=== PATIENT | female | born 1950 | race Caucasian/White ===

== ENCOUNTER 2016-07-13 04:44 | Emergency (ER) ==
[2016-07-13 04:56] VITALS: BP 155/88; TEMP 98.2; BMI 34.7
[2016-07-13] MEDS ORDERED: DILAUDID 1 MG/ML SYRINGE IM STA (05:28)
[2016-07-13 05:50] LABS: BASOPHILS # (AUTO) 0.1 K/uL (0-0.2); BASOPHILS % (AUTO) 0.5 % (0.0-3.0); EOSINOPHILS # (AUTO) 0.1 K/ul (0.0-0.7); EOSINOPHILS % (AUTO) 0.7 % (0.0-7.0); HEMATOCRIT 41.3 % (37.0-47.0); HEMOGLOBIN 13.9 g/dl (12.0-16.0); IMMATURE GRANULOCYTE % (AUTO) 0.5 % (0.0-5.0); LYMPHOCYTES # (AUTO) 3.6 K/uL (0.60-3.4); LYMPHOCYTES % (AUTO) 27.3 (10.0-50.0); MEAN CORPUSCULAR HEMOGLOBIN 29.5 pg (27.0-31.0); MEAN CORPUSCULAR HGB CONC 33.7 (31.8-35.4); MEAN CORPUSCULAR VOLUME 87.7 fl (81.0-99.0); MONOCYTES # (AUTO) 1.1 K/uL (0.4-2.0); MONOCYTES % (AUTO) 8.5 (0-10); NEUTROPHILS # (AUTO) 8.3 K/ul (2.0-6.9); NEUTROPHILS % (AUTO) 62.5; PLATELET COUNT 424 10^3/uL (140-440); RED BLOOD COUNT 4.71 10^6/ul (4.20-5.40); WHITE BLOOD COUNT 13.32 K/ul (4.6-10.2)
--- NOTE | 2016-07-13 05:53 | CT ---
EXAM: CT head without contrast 12/22. Sagittal and coronal reformatted images obtained HISTORY: Headache COMPARISON: 04/09/2014 FINDINGS: There is no evidence of intracranial hemorrhage. The midline is maintained. No hydroceph alous. Mild atrophy and small vessel ischemic change. No cerebellar tonsillar ectopia. Evaluation of the calvarium shows no fracture. The mastoid air cells are normally pneumatized. IMPRESSION: No acute intracranial abnormality.
--- NOTE | 2016-07-13 06:10 | ED.PDOC ---
General ED Provider: Dr. JEIMY GARCIA Chief Complaint: Earache Stated Complaint: patient states she was seen in the clinic one week ago for left ear pain ws given antibiotics steroids and pain medications but did not help. Time Seen by Physician: 05:00 Mode of Arrival: Walk-In Information Source: Patient Exam Limitations: No limitations Primary Care Provider: LLOYD CHO Nursing and Triage Documentation Reviewed and Agree: Yes EENT Complaint Exam - Ear Complaint/Exam Onset/Duration: 1 week Symptoms Are: Still present Timing: Constant Initial Severity: Moderate Current Severity: Severe Character: Reports: Sharp pain Aggravating: Reports: Tugging on ear, Movement Associated Signs and Symptoms: Reports: Headache (moravian area. ) Related History: Denies: Similar Episode, Seasonal allergies, Meds used, Drops used Ear Surgical History: None Vesicles to External Pinna: No Vesicles to Tragus: No TMJ Tenderness: None Mastoid Tenderness: None External Canal: Normal Material in Canal: Absent: Cerumen, Cerumen impaction Differential Diagnoses: Pharyngitis, URI, Serous Otitis Review of Systems - Review Of Systems Constitutional: Reports: No symptoms Eyes: Reports: No symptoms Ears, Nose, Mouth, Throat: Reports: Ear pain Respiratory: Reports: No symptoms Cardiac: Reports: No symptoms GI: Reports: No symptoms : Reports: No symptoms Musculoskeletal: Reports: No symptoms Skin: Reports: No symptoms Neurological: Reports: No symptoms Endocrine: Reports: No symptoms Hematologic/Lymphatic: Reports: No symptoms All Other Systems: Reviewed and Negative Past Medical History - Past Medical History Endocrine: Reports: Unknown Cardiovascular: Reports: Unknown Respiratory: Reports: Unknown Hematological: Reports: Unknown Gastrointestinal: Reports: Unknown Genitourinary: Reports: Unknown Neuro/Psych: Reports: Unknown Musculoskeletal: Reports: Unknown Cancer: Reports: Unknown Last Menstrual Period: 30 YEARS AGO - Surgical History General Surgical History: Reports: Unknown - Family History Family History: Reports: Unknown - Social History Smoking Status: Never smoker Hx Substance Use: No Alcohol Screening: None - Immunizations Tetanus Shot up to Date: (UNKNOWN) Physical Exam - Physical Exam Appearance: Ill-appearing, Obese Pain Distress: Severe Eyes: EVANGELIST, EOMI, Conjunctiva clear ENT: Ears normal, Nose normal, Oropharynx normal Neck: Supple Respiratory: Airway patent, Breath sounds clear, Breath sounds equal, Respirations nonlabored Cardiovascular: RRR Musculoskeletal: Normal strength Skin: Warm Neurological: Sensation intact, Motor intact, Alert, Oriented Psychiatric: Anxious Interpretation - Radiology Interpretation Radiology Interpretation By: Radiologist Radiology Results: Negative Exam Interpreted: CT Scan - EKG Interpretation Time of EKG #1: 06:02 Rate: Normal Rhythm: Sinus Ectopy: None [place]: NL ST Segment: Normal Interpretation: left atrial Enlargement, inverted T waves V1 and V2 Re-Evaluation - Re-Evaluation Time of Re-Evaluation: 06:45 Status: Improved Vital Signs Stable: Yes Pain Level: 0 Critical Care Note - Critical Care Note Total Time (mins): 0 Course - Course Hematology/Chemistry: 07/13/16 05:40 07/13/16 05:40 Orders, Labs, Meds: Lab Review 07/13/16 05:40 WBC 13.32 H RBC 4.71 Hgb 13.9 Hct 41.3 MCV 87.7 MCH 29.5 MCHC 33.7 RDW Coeff of Kwabena 12.9 Plt Count 424 Immature Gran % (Auto) 0.5 Neut % (Auto) 62.5 Lymph % (Auto) 27.3 [place] % (Auto) 8.5 Eos % (Auto) 0.7 Baso % (Auto) 0.5 Immature Gran # (Auto) 0.1 Neut # 8.3 H Lymph # 3.6 H [place] # 1.1 Eos # 0.1 Baso # 0.1 Orders Category Date Time Status EKG-(ED ONLY) Stat CARDIO 07/13/16 05:31 Ordered CBC W/ AUTO DIFF Stat LAB 07/13/16 05:40 Completed CBC W/ AUTO DIFF Stat LAB 07/13/16 05:58 Stop Req COMPREHENSIVE METABOLIC PANEL Stat LAB 07/13/16 05:40 Received ESR Stat LAB 07/13/16 05:40 Received TROPONIN I Stat LAB 07/13/16 05:40 Received Hydromorphone HCl [Dilaudid 1 mg/ml Syringe] MEDS 07/13/16 05:28 Discontinued 1 mg IM ONCE STA CT HEAD W/O CONTRAST Stat RADS 07/13/16 05:27 Completed Medications Discontinued Medications Generic Name Dose Route Start Last Admin Trade Name Freq PRN Reason Stop Dose Admin Hydromorphone HCl 1 mg 07/13/16 05:28 07/13/16 05:47 Dilaudid 1 Mg/Ml Syringe IM 07/13/16 05:29 1 mg ONCE STA Administration Vital Signs: Temp Pulse Resp BP Pulse Ox 07/13/16 04:45 98.2 F 84 20 155/88 H 98 Departure - Departure Time of Disposition: 06:27 Disposition: HOME SELF-CARE Discharge Problem: Ear pain, left Instructions: Earache (ED) Condition: Good Pt referred to PMD for follow-up: Yes Additional Instructions: Take medications as prescribed. Follow up with PCP in 3 days. Prescriptions: Ondansetron HCl [Zofran Tab] 8 mg PO Q8H PRN #15 tablet PRN Reason: Nausea / Vomiting Oxycodone-Acetaminophen 5-325 [Percocet 5-325] 1 tab PO Q4H #20 tablet Allergies/Adverse Reactions: Allergies acetaminophen [From Excedrin PM] Adverse Reaction (Verified 07/13/16 04:55) cortisone Adverse Reaction (Verified 07/13/16 04:55) diphenhydramine [From Excedrin PM] Adverse Reaction (Verified 07/13/16 04:55) Home Medications: Ambulatory Orders Alprazolam [Xanax] 0.25 mg PO BID 04/30/16 Donepezil HCl [Aricept] 10 mg PO DAILY 04/30/16 Escitalopram Oxalate [Lexapro] 10 mg PO DAILY 04/30/16 Lansoprazole [Prevacid] 30 mg PO DAILY 04/30/16 Losartan/Hydrochlorothiazide [Losartan-Hctz 100-25 mg Tab] 1 each PO DAILY 04/30 Phenytoin Cap [Dilantin] 100 mg PO QID 04/30/16 Verapamil HCl 120 mg PO DAILY 04/30/16 Amoxicillin/Potassium Clav [Augmentin 500-125 mg Tab] 1 tab PO Q8HR 07/13/16 Hydrocodone/Acetaminophen [Hydrocodon-Acetaminophen 5-325] 1 each PO BID PRN 12/22 Ondansetron HCl [Zofran Tab] 8 mg PO Q8H PRN #15 tablet 07/13/16 Oxycodone-Acetaminophen 5-325 [Percocet 5-325] 1 tab PO Q4H #20 tablet 07/13/16 Disposition Discussed With: Patient, Family
[2016-07-13 06:16] LABS: ALANINE AMINOTRANSFERASE 20 U/L (12-78); ALBUMIN 3.9 g/dL (3.4-5.0); ALBUMIN/GLOBULIN RATIO 0.98; ALKALINE PHOSPHATASE 126 U/L (53-141); ASPARTATE AMINO TRANSFERASE 19 U/L (15-37); BILIRUBIN,TOTAL 0.18 mg/dL (0.00-1.20); BLOOD UREA NITROGEN 9 mg/dL (7-18); BUN/CREATININE RATIO 11.11; CALCIUM 9.8 mg/dL (8.2-10.2); CARBON DIOXIDE 28 mmol/L (23-31); CHLORIDE 103 mmol/L (98-107); CREATININE 0.81 mg/dL (0.60-1.30); GLUCOSE 95 mg/dL (82-115); SODIUM 142 mmol/L (136-145); TOTAL PROTEIN 7.9 g/dL (5.8-8.1)
[2016-07-13 06:20] LABS: ERYTHROCYTE SEDIMENTATION RATE 16 mm/hr (0-20); ESR INTERNAL QC INTERNAL QC VALID
[2016-07-13] MEDS ORDERED: ZOFRAN ODT PO STA (06:46)
== END 2016-07-13 06:58 | disposition home or self-care (01) ==
LOC: ED 04:44
DX: H92.02 Otalgia, left ear (principal)
CPT/HCPCS: 36415; 80053; 84484; 85025; 85651; 93005; 93010; 96372; 99283

== ENCOUNTER 2016-11-02 07:00 | Emergency (ER) ==
[2016-11-02 07:04] VITALS: BP 167/95; TEMP 98.1; BMI 33.9
[2016-11-02] MEDS ORDERED: TORADOL IM STA (07:28)
--- NOTE | 2016-11-02 07:38 | ED.PDOC ---
General Stated Complaint: Patient complaints of headache for the past few days. Has had a left ear ache for he past few months. Seen PA at an urgent care over the weekend. Given nasal stroids but not better. Took aleve at 4 pm last night but has not helped. Time Seen by Physician: 07:15 Mode of Arrival: Walk-In Information Source: Patient, Family Exam Limitations: No limitations Nursing and Triage Documentation Reviewed and Agree: Yes <JEIMY GARCIA - Last Filed: 11/02/16 07:35> <EARL MAGAÑA JR - Last Filed: 11/02/16 09:20> ED Provider: Dr. EARL MAGAÑA JR Chief Complaint: Headache Primary Care Provider: LLOYD CHO Neurological Complaint Exam - Headache Complaint/Exam Onset: Gradual Duration: 1 week Symptoms Are: Still present Timing: Constant Worst Headache Ever: No Initial Severity: Moderate Current Severity: Severe Location: Left, Temporal Character: Reports: Throbbing Aggravating: Reports: Bright lights Alleviating: Reports: None Associated Signs and Symptoms: Reports: Nausea, Sinus pressure (on the left frontal area.). Denies: Vomiting Related History: Reports: Similar episode Related Surgical History: Reports: None SAH Risk Factors: Reports: Hypertension. Denies: -irish, Family history, Smoking Meningitis Risk Factors: Reports: None SDH Risk Factors: Reports: None Temporal Arteritis Risk Factors: Reports: Female, , Over 60 years old. Denies: Polymyalgia Rheumatica Normal Head CT Within Last 12 Months: Yes (3 months ago ) Fundoscopic Exam: Present: Normal Findings Papilledema Present: No Temporal Artery Tenderness: Present: Left Sinus Tenderness: Present: Frontal TMJ Tenderness: Present: None Glascow Coma Scale (see protocol): 15 Meningeal Signs Positive: No Pain on Passive Flexion-Positive Kernig's: No ROM Limited In: No Limitiations Focal Weakness: Present: None Focal Sensory Loss: Present: None Gait: Normal Nystagmus Present: No Gag Reflex Present: Yes [id number]: Normal Findings Romberg Test Positive: No Babinski Sign: Negative Right, Negative Left Heel to Toe Normal: Yes Head Picture: 1 - headache Differential Diagnoses: Migraine, Temporal Arteritis, Tension Headache, Viral Syndrome <GANESHSTANLEYJEIMY - Last Filed: 11/02/16 07:35> Review of Systems - Review Of Systems Constitutional: Reports: Loss of appetite Eyes: Reports: Photophobia. Denies: Vision change, Drainage Ears, Nose, Mouth, Throat: Reports: Ear pain (on the left ) Respiratory: Reports: No symptoms Cardiac: Reports: No symptoms GI: Reports: Nausea : Reports: No symptoms Musculoskeletal: Reports: No symptoms Neurological: Reports: Anxiety, Headache (mostly on the left. ) Endocrine: Reports: No symptoms Hematologic/Lymphatic: Reports: No symptoms All Other Systems: Reviewed and Negative <RADHAJEIMY - Last Filed: 11/02/16 07:35> - Review Of Systems Ears, Nose, Mouth, Throat: Reports: Ear pain <EARL MAGAÑA JR - Last Filed: 11/02/16 09:20> Past Medical History - Past Medical History Endocrine: Reports: None Cardiovascular: Reports: Hypertension Respiratory: Reports: None Hematological: Reports: None Gastrointestinal: Reports: None Genitourinary: Reports: None Neuro/Psych: Reports: Anxiety, Dementia Musculoskeletal: Reports: Unknown Cancer: Reports: Breast Last Menstrual Period: none - Surgical History General Surgical History: Reports: Hysterectomy (parital ) - Family History Family History: Reports: None - Social History Smoking Status: Former smoker Hx Substance Use: No Alcohol Screening: None <GANESHSTANLEYJEIMY - Last Filed: 11/02/16 07:35> Physical Exam - Physical Exam Appearance: Ill-appearing, Obese Ill-appearing: Moderate Pain Distress: Severe Eyes: EVANGELIST, EOMI, Conjunctiva clear ENT: Ears normal Neck: Supple Respiratory: Airway patent, Breath sounds clear, Breath sounds equal, Respirations nonlabored Cardiovascular: RRR Musculoskeletal: Normal strength, ROM intact, No edema, No calf tenderness Skin: Warm, Dry, Normal color Neurological: Sensation intact Psychiatric: Anxious <JEIMY GARCIA - Last Filed: 11/02/16 07:35> Re-Evaluation - Re-Evaluation Time of Re-Evaluation: 08:28 Status: Improved (states pain to left face and scalp also tender inside left ear ) Appearance: Other (tender inside ear slight eac edema cloudy TM mobile no erythema, temproal artery nontender no edema on palpation) <EARL MAGAÑA JR - Last Filed: 11/02/16 09:20> Physician Notification - Case Discussed Endorsed To/Discussed With: Dr. Magaña Time of Discussion: 07:46 <JEIMY GARCIA - Last Filed: 11/02/16 07:35> - Case Discussed Endorsed To/Discussed With: DR GARCIA Time of Discussion: 07:30 <EARL MAGAÑA JR - Last Filed: 11/02/16 09:20> Critical Care Note - Critical Care Note Total Time (mins): 0 <EARL MAGAÑA JR - Last Filed: 11/02/16 09:20> Course - Course Hematology/Chemistry: 11/02/16 07:40 11/02/16 07:40 <EARL MAGAÑA JR - Last Filed: 11/02/16 09:20> - Course Orders, Labs, Meds: Lab Review 11/02/16 07:40 WBC 13.96 H RBC 4.57 Hgb 13.5 Hct 40.7 MCV 89.1 MCH 29.5 MCHC 33.2 RDW Coeff of Kwabena 13.2 Plt Count 374 Immature Gran % (Auto) 0.4 Neut % (Auto) 70.8 Lymph % (Auto) 20.6 [place] % (Auto) 6.7 Eos % (Auto) 1.1 Baso % (Auto) 0.4 Immature Gran # (Auto) 0.1 Neut # 9.9 H Lymph # 2.9 [place] # 0.9 Eos # 0.2 Baso # 0.1 ESR 21 H Sodium 141 Potassium 3.7 Chloride 105 Carbon Dioxide 26 Anion Gap 13.7 BUN 12 Creatinine 0.76 Estimated GFR (MDRD) 77.00 BUN/Creatinine Ratio 15.78 Glucose 104 Calcium 9.8 Total Bilirubin 0.33 AST 16 ALT 16 Alkaline Phosphatase 128 Total Protein 7.7 Albumin 4.0 Globulin 3.7 Albumin/Globulin Ratio 1.08 Orders Category Date Time Status C-REACTIVE PROTEIN Stat LAB 11/02/16 07:40 Received CBC W/ AUTO DIFF Stat LAB 11/02/16 07:40 Completed COMPREHENSIVE METABOLIC PANEL Stat LAB 11/02/16 07:40 Completed ESR Stat LAB 11/02/16 07:40 Completed Gabapentin [Neurontin] MEDS 11/02/16 08:27 Discontinued 200 mg PO ONCE STA Ketorolac Tromethamine [Toradol] MEDS 11/02/16 07:28 Discontinued 60 mg IM ONCE STA Medications Discontinued Medications Generic Name Dose Route Start Last Admin Trade Name Ravinq PRN Reason Stop Dose Admin Gabapentin 200 mg 11/02/16 08:27 11/02/16 08:45 Neurontin PO 11/02/16 08:28 200 mg ONCE STA Administration Ketorolac Tromethamine 60 mg 11/02/16 07:28 11/02/16 07:37 Toradol IM 11/02/16 07:29 60 mg ONCE STA Administration Vital Signs: Temp Pulse Resp BP Pulse Ox 11/02/16 07:00 98.1 F 74 18 167/95 H 95 Departure <JEIMY GARCIA - Last Filed: 11/02/16 07:35> - Departure Time of Disposition: 09:20 Pt referred to PMD for follow-up: Yes <EARL MAGAÑA JR - Last Filed: 11/02/16 09:20> - Departure Disposition: HOME SELF-CARE Discharge Problem: Trigeminal neuralgia pain, Trigeminal neuralgia of left side of face Instructions: Trigeminal Neuralgia (ED) Condition: Good Additional Instructions: follow up tomorrow as scheduled continue medication for sinuses gabapentin 200mg three times a day as needed for burning toradol 10 mg four times a day as needed for pain Prescriptions: Gabapentin [Neurontin] 200 mg PO TID PRN #60 capsule PRN Reason: burning pain Ketorolac Tromethamine [Toradol] 10 mg PO QID PRN #20 tablet PRN Reason: PAIN Allergies/Adverse Reactions: Allergies cortisone Adverse Reaction (Verified 11/02/16 07:05) diphenhydramine [From Excedrin PM] Adverse Reaction (Verified 11/02/16 07:05) Home Medications: Ambulatory Orders Alprazolam [Xanax] 0.25 mg PO BID 04/30/16 Donepezil HCl [Aricept] 10 mg PO DAILY 04/30/16 Escitalopram Oxalate [Lexapro] 10 mg PO DAILY 04/30/16 Lansoprazole [Prevacid] 30 mg PO DAILY 04/30/16 Losartan/Hydrochlorothiazide [Losartan-Hctz 100-25 mg Tab] 1 each PO DAILY 04/30 Phenytoin Cap [Dilantin] 100 mg PO QID 04/30/16 Verapamil HCl 120 mg PO DAILY 04/30/16 Gabapentin [Neurontin] 200 mg PO TID PRN #60 capsule 11/02/16 Ketorolac Tromethamine [Toradol] 10 mg PO QID PRN #20 tablet 11/02/16 [place]-3 Fatty Acids/Fish Oil [Fish Oil 1,000 mg Capsule] 1 each PO DAILY [place]-3/Dha/Epa/Fish Oil [[place] 3 500 Softgel] 1 each PO DAILY 11/02/16 Vitamin E 400 unit PO DAILY 11/02/16
[2016-11-02 07:49] LABS: BASOPHILS # (AUTO) 0.1 K/uL (0-0.2); BASOPHILS % (AUTO) 0.4 % (0.0-3.0); EOSINOPHILS # (AUTO) 0.2 K/ul (0.0-0.7); EOSINOPHILS % (AUTO) 1.1 % (0.0-7.0); HEMATOCRIT 40.7 % (37.0-47.0); HEMOGLOBIN 13.5 g/dl (12.0-16.0); IMMATURE GRANULOCYTE % (AUTO) 0.4 % (0.0-5.0); LYMPHOCYTES # (AUTO) 2.9 K/uL (0.60-3.4); LYMPHOCYTES % (AUTO) 20.6 (10.0-50.0); MEAN CORPUSCULAR HEMOGLOBIN 29.5 pg (27.0-31.0); MEAN CORPUSCULAR HGB CONC 33.2 (31.8-35.4); MEAN CORPUSCULAR VOLUME 89.1 fl (81.0-99.0); MONOCYTES # (AUTO) 0.9 K/uL (0.4-2.0); MONOCYTES % (AUTO) 6.7 (0-10); NEUTROPHILS # (AUTO) 9.9 K/ul (2.0-6.9); NEUTROPHILS % (AUTO) 70.8; PLATELET COUNT 374 10^3/uL (140-440); RED BLOOD COUNT 4.57 10^6/ul (4.20-5.40); WHITE BLOOD COUNT 13.96 K/ul (4.6-10.2)
[2016-11-02 08:17] LABS: ALBUMIN/GLOBULIN RATIO 1.08; ANION GAP 13.7; BILIRUBIN,TOTAL 0.33 mg/dL (0.00-1.20); BUN/CREATININE RATIO 15.78; CALCIUM 9.8 mg/dL (8.2-10.2); CREATININE 0.76 mg/dL (0.60-1.30); POTASSIUM 3.7 mmol/L (3.5-5.10); TOTAL PROTEIN 7.7 g/dL (5.8-8.1)
[2016-11-02] MEDS ORDERED: NEURONTIN PO STA (08:27)
[2016-11-02 08:29] LABS: ERYTHROCYTE SEDIMENTATION RATE 21 mm/hr (0-20); ESR INTERNAL QC INTERNAL QC VALID
== END 2016-11-02 09:25 | disposition home or self-care (01) ==
LOC: ED 07:00
DX: G50.0 Trigeminal neuralgia (principal); I10 Essential (primary) hypertension; Z79.899 Other long term (current) drug therapy
CPT/HCPCS: 36415; 80053; 85025; 85651; 86140; 96372; 99283

== ENCOUNTER 2016-11-04 08:44 | Outpatient (CLI) ==
--- NOTE | 2016-11-04 11:48 | MRI ---
EXAM: Brain and brainstem MRI with and without contrast. HISTORY: Left trigeminal neuralgia. COMPARISON: Head CT 07/13/2016 and brain MRI 04/09/2014. TECHNIQUE: Multiplanar, multisequence MR images were acquired of the brain with thin sections throu gh the posterior fossa before and after administration of intravenous contrast. FINDINGS: The midline structures are central and the craniocervical junction is unremarkable. The ventricles and sulci are normal in size and configuration. 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 There are no abnormal extra-axial fluid collections. The brain parenchyma has no diffusion restriction to suggest acute hypoperfusion or infarction. The re are small scattered T2 hyperintensities in the supratentorial white matter consistent with minor leukomalacia unchanged from the previous MRI. There is an old lacuna in the right caudate head. Thi n sections were obtained through the posterior fossa. These show no abnormal contrast enhancement i n the cisternal trigeminal nerves or trigeminal ganglia. There is no vascular loop compression of t he cisternal trigeminal nerves. No masses are identified in the cavernous sinuses. The corpus call osum has a normal configuration. The pituitary gland is normal in size and has homogeneous contrast enhancement. There is hyperostosis frontalis interna. No intraorbital masses are present. Paranasal sinuses, mi ddle ears and mastoids are unremarkable. No abnormal contrast enhancement is present in the interna l auditory canals or labyrinthine structures. There is fatty infiltration of the parotid glands bila terally. Flow voids are present in the major intracranial arteries and dural venous sinuses. Mild facet arthr opathy is present in the upper cervical spine. IMPRESSION: 1. No intracranial mass, hemorrhage or acute cerebral infarct. 2. Stable minor supratentorial chronic ischemic small vessel disease. 3. No abnormal contrast enhancement or mass is identified in the cisternal trigeminal nerves or tri geminal ganglia.
== END 2016-11-04 08:45 | disposition home or self-care (01) ==
LOC: RAD 08:44
PROVIDERS: ATTEND Internal Medicine
DX: G50.0 Trigeminal neuralgia (principal)

== ENCOUNTER 2017-09-26 08:50 | Outpatient (CLI) | payer OTHER ==
--- NOTE | 2017-09-26 10:29 | CT ---
EXAM: CT of the soft tissue neck with contrast History: Left neck mass. Comparison: Ultrasound of the soft tissue neck 09/25/2017 Technique: Multiplanar CT images through the soft tissue neck were obtained following administration of IV contrast Findings: Orbits are intact. The intracranial contents demonstrate no acute findings. No parotid m asses and no parotid inflammation. Submandibular glands are within normal limits. 2.6 cm x 2.5 cm x 3.5 cm low-density well-circumscribed mass situated between the left parotid and submandibular gland . This mass is not hypervascular. No peritonsillar inflammation. Epiglottis is not thickened. No di screte thyroid nodule identified by CT. The visualized upper lungs are free of consolidation. No ac platinum osseous abnormalities. Impression: Low density well circumscribed mass within the left neck as described above. Differential diagnosis is broad and would include low density lymph node and developmental cystic abnormality. Ma lignancy is not excluded. Further evaluation can be obtained with an MRI or PET CT.
== END 2017-09-26 08:51 | disposition home or self-care (01) ==
LOC: RAD 08:50
PROVIDERS: ATTEND Internal Medicine
DX: R22.1 Localized swelling, mass and lump, neck (principal)

== ENCOUNTER 2017-12-18 09:07 | Emergency (ER) | payer OTHER ==
[2017-12-18 09:10] VITALS: BP 167/83; TEMP 97.7; BMI 36.8
--- NOTE | 2017-12-18 09:29 | ED.PDOC ---
General ED Provider: Dr. NAYE YU Chief Complaint: Kidney Stone Stated Complaint: Rt Flank Pain : 3-4 day History of pain radiating from Rt Flank spreading around to Rt mid abdomen. Associated Nausea and Vomiting. Went To Dr [facility] and UA was positive for Blood. Dr Cho called to advise of patient coming into ER Time Seen by Physician: 09:24 Mode of Arrival: Walk-In Information Source: Patient, Family Primary Care Provider: LLOYD CHO Referred to ED by: PCP (Dr Cho) Nursing and Triage Documentation Reviewed and Agree: Yes Does patient meet sepsis criteria?: No System Inflammatory Response Syndrome: Not Applicable Sepsis Protocol: For patient's 13 years and over: Temp is 96.8 and below OR 101 and greater Pulse >90 BPM Resp >20/minute Acutely Altered Mental Status Are patient's symptoms suggestive of a new infection, such as: -Pneumonia -Skin, Soft Tissue -Endocarditis -UTI -Bone, Joint Infection -Implantable Device -Acute Abdominal Infection -Wound Infection -Meningitis -Blood Stream Catheter Infection -Unknown Complaint Exam - Complaint/Exam Patient Complains of: Reports: Pain Onset/Duration: 3 Days Symptoms Are: Still present Timing: Constant (with intermitted worsening) Initial Severity: Moderate Current Severity: Severe Location of Pain: Reports: Right, Flank, Radiating Character: Reports: Colicky, Burning, Constant pressure, Dull, Cramping Aggravating: Reports: None Alleviating: Reports: Position Associated Signs and Symptoms: Reports: Back pain, Dysuria, Nausea, Vomiting, Abdominal Pain Related History: Denies: Similar episode Surgical Obstruction Risk Factors: Reports: None Related Surgical History: Reports: None Abdominal Findings: Present: CVA Tenderness (No rebound tenderness) Differential Diagnoses: Ureteral Stone Review of Systems - Review Of Systems Constitutional: Reports: No symptoms Eyes: Reports: No symptoms Ears, Nose, Mouth, Throat: Reports: No symptoms Respiratory: Reports: No symptoms Cardiac: Reports: No symptoms GI: Reports: No symptoms, Nausea, Vomiting (No Loss of Appetite, Has been drinking fluids) : Reports: No symptoms Musculoskeletal: Reports: No symptoms Skin: Reports: No symptoms Neurological: Reports: No symptoms Endocrine: Reports: No symptoms Hematologic/Lymphatic: Reports: No symptoms All Other Systems: Reviewed and Negative Past Medical History - Past Medical History Endocrine: Reports: None Cardiovascular: Reports: Hypertension Respiratory: Reports: None Hematological: Reports: None Gastrointestinal: Reports: None Genitourinary: Reports: None Neuro/Psych: Reports: Anxiety, Dementia Musculoskeletal: Reports: Unknown Cancer: Reports: Breast Last Menstrual Period: None - Surgical History General Surgical History: Reports: Hysterectomy (parital ) - Family History Family History: Reports: None - Social History Smoking Status: Former smoker Hx Substance Use: No Alcohol Screening: None - Immunizations Tetanus Shot up to Date: Yes Physical Exam - Physical Exam Appearance: Well-appearing, Well-nourished, Obese Ill-appearing: Mild Pain Distress: Moderate (Pain 8/10) Eyes: EVANGELIST, EOMI, Conjunctiva clear ENT: Ears normal, Nose normal, Oropharynx normal Respiratory: Airway patent, Breath sounds clear, Breath sounds equal, Respirations nonlabored Cardiovascular: RRR, Pulses normal, No rub, No murmur GI/: Soft, No masses, Bowel sounds normal, No Organomegaly, Tender (Rt Flank and Rt Mid abdomen mild involuntary guarding. no rebound/ neg at time of reassessment), Bowel sounds hypoactive Musculoskeletal: Normal strength, ROM intact, No edema, No calf tenderness Skin: Warm, Dry, Normal color Neurological: Sensation intact, Motor intact, Reflexes intact, Cranial nerves intact, Alert, Oriented Psychiatric: Affect appropriate, Mood appropriate Interpretation - Radiology Interpretation Radiology Interpretation By: Radiologist Exam Interpreted: CT Scan (mild rt hydronephoresis-suspect recently passed Rt Renal stone/Non specific finding of "grupo Mesentery" No clinical findings of abdominal pain, guarding or tenderness) Re-Evaluation - Re-Evaluation Time of Re-Evaluation: 10:50 Status: Improved Vital Signs Stable: Yes Appearance: NAD Lungs: Clear Skin: Warm and Dry Neuro: Alert and Oriented X3 CV: Other (abdomen soft and non tender/neg flank tenderness) Critical Care Note - Critical Care Note Total Time (mins): 0 Course - Course Orders, Labs, Meds: Lab Review 12/18/17 10:12 Urine Color Yellow Urine Clarity Clear Urine pH 7.5 Ur Specific [place] 1.015 Urine Protein Negative Urine Glucose (UA) Negative Urine Ketones Negative Urine Blood Trace-lysed Urine Nitrite Negative Urine Bilirubin Negative Urine Urobilinogen 0.2 Ur Leukocyte Esterase Trace Urine Microscopic WBC 0-2 Ur Squamous Epith Cells 0-2 Orders Category Date Time Status EKG-(ED ONLY) Stat CARDIO 12/18/17 09:31 Completed IV [ED IV/MEDIPORT/POWERPORT] .ONCE EMERGENCY 12/18/17 09:30 Active CBC W/ AUTO DIFF Stat LAB 12/18/17 09:30 Ordered CMP [COMPREHENSIVE METABOLIC PANEL] Stat LAB 12/18/17 09:30 Ordered LIPASE Stat LAB 12/18/17 09:30 Ordered TROPONIN I Stat LAB 12/18/17 09:30 Ordered UA [URINALYSIS C & S IF INDICATED] Stat LAB 12/18/17 10:12 Completed 0.9 % Sodium Chloride [Saline Flush] MEDS 12/18/17 09:31 Active 1 syr IVF PRN PRN Ketorolac Tromethamine [Toradol] MEDS 12/18/17 09:33 Discontinued 30 mg IVP ONCE STA Sodium Chloride 0.9% [Sodium Chloride] 500 ml MEDS 12/18/17 09:[address] ABDOMEN/PELVIS WO CONTRAST Stat RADS 12/18/17 09:30 Completed Medications Generic Name Dose Route Start Last Admin Trade Name Freq PRN Reason Stop Dose Admin Sodium Chloride 1 syr 12/18/17 09:31 Saline Flush IVF PRN PRN To flush IV Discontinued Medications Generic Name Dose Route Start Last Admin Trade Name Freq PRN Reason Stop Dose Admin Sodium Chloride 500 mls @ 500 mls/hr 12/18/17 09:31 Sodium Chloride IV 12/18/17 10:30 BOLUS STA Ketorolac Tromethamine 30 mg 12/18/17 09:33 12/18/17 10:06 Toradol IVP 12/18/17 09:34 30 mg ONCE STA Administration Vital Signs: Temp Pulse Resp BP Pulse Ox 12/18/17 09:07 97.7 F 82 16 167/83 H 98 Departure - Departure Time of Disposition: 10:50 Disposition: HOME SELF-CARE Discharge Problem: Ureterolithiasis, Hydronephrosis Instructions: Flank Pain (ED), Ureteral Stones (ED), Hydronephrosis (ED) Condition: Good Pt referred to PMD for follow-up: Yes (See Dr Cho later this week) IPMP verified?: No Additional Instructions: Stay well hydrated Take Ibuprofen for pain See PCP in next 2-3 days Return if pain intensifies Allergies/Adverse Reactions: Allergies cortisone Adverse Reaction (Verified 12/18/17 09:10) diphenhydramine [From Excedrin ] Adverse Reaction (Verified 12/18/17 09:10) Home Medications: Ambulatory Orders Lansoprazole [Prevacid] 30 mg PO DAILY 04/30/16 Losartan/Hydrochlorothiazide [Losartan-Hctz 100-25 mg Tab] 1 each PO DAILY 04/30 Gabapentin [Neurontin] 200 mg PO TID PRN #60 capsule 11/02/16 Alprazolam [Xanax] 0.5 mg PO BID 10/04/17 Donepezil HCl [Aricept] 10 mg PO DAILY 10/04/17 Escitalopram Oxalate [Lexapro] 20 mg PO DAILY 10/04/17 Phenytoin Sodium Extended [Dilantin] 100 mg PO QID 10/04/17 Verapamil HCl [Verapamil Er] 120 mg PO DAILY 10/04/17 Disposition Discussed With: Patient, Family
[2017-12-18] MEDS ORDERED: SODIUM CHLORIDE 500 ML IV STA (09:31)
[2017-12-18] MEDS ORDERED: TORADOL IVP STA (09:33)
--- NOTE | 2017-12-18 10:32 | CT ---
EXAM: CT of the abdomen pelvis without contrast History: Right flank pain. Comparison: None available. Technique: Multiplanar CT images through the abdomen pelvis were obtained without the administration of IV contrast Findings: Lung bases are clear. No acute osseous abnormalities. No discrete gallstones identified by CT. No focal liver or splenic lesions. No renal stones. Adren al glands are unremarkable. No peripancreatic inflammation. Nonspecific mild grupo mesentery. Ther e is mild right hydronephrosis. No ureteral stones are identified. No dilated loops of bowel. The appendix is not seen. No bladder wall thickening. Uterus is not seen. No perirectal inflammation. No free air and no ascites. Tiny fat containing umbilical hernia. Impression: 1. Mild right hydronephrosis with no ureteral stones identified. Consider a recently passed stone. 2. 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
== END 2017-12-18 11:12 | disposition home or self-care (01) ==
LOC: ED 09:07
DX: N13.2 Hydronephrosis with renal and ureteral calculous obstruction (principal); I10 Essential (primary) hypertension; Z79.899 Other long term (current) drug therapy
CPT/HCPCS: 81001; 93005; 93010; 96372; 99283

== ENCOUNTER 2017-12-24 08:21 | Emergency (ER) ==
[2017-12-24 08:27] VITALS: BP 163/85; TEMP 98.8; BMI 35.5
--- NOTE | 2017-12-24 08:52 | ED.PDOC ---
General ED Provider: Dr. NAYE YU Chief Complaint: Back Pain Stated Complaint: Flank Pain. Was in hospital for pain control for apparent onset of shingle and unbearable pain. States pain not adequatedly controlled so she signed out AMA. On tramadol and Famcyclovir. Pain is unbearable this morning Time Seen by Physician: 08:50 Mode of Arrival: Walk-In Information Source: Patient, Family Exam Limitations: Clinical condition Primary Care Provider: LLOYD CHO Seen Within Last 72 Hours for Same Complaint By: In-Patient Facility Nursing and Triage Documentation Reviewed and Agree: Yes Does patient meet sepsis criteria?: No System Inflammatory Response Syndrome: Not Applicable Sepsis Protocol: For patient's 13 years and over: Temp is 96.8 and below OR 101 and greater Pulse >90 BPM Resp >20/minute Acutely Altered Mental Status Are patient's symptoms suggestive of a new infection, such as: -Pneumonia -Skin, Soft Tissue -Endocarditis -UTI -Bone, Joint Infection -Implantable Device -Acute Abdominal Infection -Wound Infection -Meningitis -Blood Stream Catheter Infection -Unknown Complaint Exam - Complaint/Exam Patient Complains of: Reports: Pain (Also appears to have passed a RT RENAL STONE) Onset/Duration: 4 days Symptoms Are: Still present (Recentl prescribed Tramadol and Famcyclovir by Dr Cho for shingles) Timing: Intermittent Initial Severity: Severe Current Severity: Moderate Location of Pain: Reports: Right, Flank ( and Rt lateral costal and rt abdominal region ) Aggravating: Reports: Movement Alleviating: Reports: None Associated Signs and Symptoms: Reports: Back pain, Nausea Review of Systems - Review Of Systems Constitutional: Reports: Malaise, Weakness, Loss of appetite Eyes: Reports: No symptoms Ears, Nose, Mouth, Throat: Reports: No symptoms Respiratory: Reports: No symptoms Cardiac: Reports: No symptoms GI: Reports: Abdominal pain, Nausea. Denies: Abdomen distended, Constipated : Reports: Flank pain Musculoskeletal: Reports: Back pain Skin: Reports: Lesions (Rt FLank, lateral costal and Rt Abdomen) Neurological: Reports: No symptoms, Other (burning dysesthesias Rt flank and intercostal region ) Endocrine: Reports: No symptoms Hematologic/Lymphatic: Reports: No symptoms All Other Systems: Reviewed and Negative Past Medical History - Past Medical History Endocrine: Reports: None Cardiovascular: Reports: Hypertension Respiratory: Reports: None Hematological: Reports: None Gastrointestinal: Reports: None Genitourinary: Reports: None Neuro/Psych: Reports: Anxiety, Dementia Musculoskeletal: Reports: Unknown Cancer: Reports: Breast Last Menstrual Period: none - Surgical History General Surgical History: Reports: Hysterectomy (parital ) - Family History Family History: Reports: None - Social History Smoking Status: Former smoker Hx Substance Use: No Alcohol Screening: None Physical Exam - Physical Exam Appearance: Ill-appearing, Obese Ill-appearing: Mild Pain Distress: Moderate Eyes: EVANGELIST, EOMI, Conjunctiva clear ENT: Ears normal, Nose normal, Oropharynx normal Respiratory: Airway patent, Breath sounds clear, Breath sounds equal, Respirations nonlabored Cardiovascular: RRR, Pulses normal, No rub, No murmur GI/: Soft, Nontender, No masses, Bowel sounds normal, No Organomegaly Musculoskeletal: Normal strength Skin: Warm (Red rash in clusters from Rt Flank around costal region into lower abdomen, very sensitive to touch), Dry, Normal color Critical Care Note - Critical Care Note Total Time (mins): 0 Comments: 0 Course - Course Hematology/Chemistry: 12/24/17 09:10 12/24/17 09:10 Orders, Labs, Meds: Lab Review 12/24/17 12/24/17 12/24/17 09:10 09:10 10:20 WBC 15.08 H RBC 4.19 L Hgb 12.0 Hct 35.2 L MCV 84.0 MCH 28.6 MCHC 34.1 RDW Coeff of [place] 13.8 Plt Count 397 Immature Gran % (Auto) 0.6 Neut % (Auto) 76.6 Lymph % (Auto) 16.0 [place] % (Auto) 6.4 Eos % (Auto) 0.1 Baso % (Auto) 0.3 Immature Gran # (Auto) 0.1 Neut # (Auto) 11.6 H Lymph # (Auto) 2.4 [place] # (Auto) 1.0 Eos # (Auto) 0.0 Baso # (Auto) 0.0 ESR 13 Sodium 133 L Potassium 3.5 Chloride 98 Carbon Dioxide 26 Anion Gap 12.5 BUN 5 L Creatinine 0.70 Estimated GFR (MDRD) 84.00 BUN/Creatinine Ratio 7.14 Glucose 120 H Calcium 9.5 Total Bilirubin 0.4 AST 16 ALT 18 Alkaline Phosphatase 128 Total Protein 7.2 Albumin 3.6 Globulin 3.6 Albumin/Globulin Ratio 1.00 Urine Color Yellow Urine Clarity Clear Urine pH 7.0 Ur Specific [place] 1.010 Urine Protein Negative Urine Glucose (UA) Negative Urine Ketones Negative Urine Blood 1+ Urine Nitrite Negative Urine Bilirubin Negative Urine Urobilinogen 0.2 Ur Leukocyte Esterase Negative Urine Microscopic RBC 0-2 Ur Squamous Epith Cells Not present Orders Category Date Time Status CBC W/ AUTO DIFF Stat LAB 12/24/17 09:10 Completed CMP [COMPREHENSIVE METABOLIC PANEL] Stat LAB 12/24/17 09:10 Completed ESR Stat LAB 12/24/17 09:10 Completed UA [URINALYSIS C & S IF INDICATED] Stat LAB 12/24/17 10:20 Completed Hydromorphone HCl [Dilaudid 0.5 mg/0.5 ml Syringe] MEDS 12/24/17 09:04 Discontinued 1 mg IM ONCE STA Promethazine HCl [Phenergan 25 mg/ml Vial] MEDS 12/24/17 11:05 Discontinued 25 mg IM ONCE STA Medications Discontinued Medications Generic Name Dose Route Start Last Admin Trade Name Kinjal ART Reason Stop Dose Admin Hydromorphone HCl 1 mg 12/24/17 09:04 12/24/17 09:25 Dilaudid 0.5 Mg/0.5 Ml Syringe IM 12/24/17 09:05 1 mg ONCE STA Administration Promethazine HCl 25 mg 12/24/17 11:05 12/24/17 11:15 Phenergan 25 Mg/Ml Vial IM 12/24/17 11:06 25 mg ONCE STA Administration Vital Signs: Temp Pulse Resp BP Pulse Ox 12/24/17 08:22 98.8 F 83 20 163/85 H 95 Departure - Departure Time of Disposition: 11:45 Disposition: HOME SELF-CARE Discharge Problem: Shingles rash Instructions: Shingles (ED) Condition: Good Pt referred to PMD for follow-up: Yes (Dr Cho) IPMP verified?: No Additional Instructions: Take Meds as directed Prescriptions sent in See Dr Cho tomorrow Take Tramadol 50 mg 1 every 4-6 hours for control of recurrent pain. May add tylenol 325 mg 1-2 tabs everr 6 hrs as needed Rx Prometazine 25 mg 1 every 6-8 hours for associated nausea /vomiting Prescriptions: Gabapentin [Neurontin] 100 mg PO TID #30 capsule Allergies/Adverse Reactions: Allergies cortisone Adverse Reaction (Verified 12/24/17 08:27) diphenhydramine [From Excedrin PM] Adverse Reaction (Verified 12/24/17 08:27) Home Medications: Ambulatory Orders Lansoprazole [Prevacid] 30 mg PO DAILY 04/30/16 Losartan/Hydrochlorothiazide [Losartan-Hctz 100-25 mg Tab] 1 each PO DAILY 04/30 Alprazolam [Xanax] 0.25 mg PO BID 10/04/17 Donepezil HCl [Aricept] 10 mg PO BEDTIME 10/04/17 Escitalopram Oxalate [Lexapro] 10 mg PO 1500 10/04/17 Phenytoin Sodium Extended [Dilantin] 200 mg PO 0900,1500 10/04/17 Verapamil HCl [Verapamil Er] 120 mg PO DAILY 10/04/17 Famciclovir [Famvir] 500 mg PO BID 12/24/17 Gabapentin [Neurontin] 100 mg PO TID #30 capsule 12/24/17 Promethazine HCl 25 mg PO Q4-8H PRN #10 tablet 12/24/17 Tramadol HCl [Ultram] 50 mg PO ONCE 12/24/17 Disposition Discussed With: Patient, Other (Spoke with Dr Cho who concurred with patient's treatment plan) Additional Information: Due to degree of patient's pain Dilaudid 1 mg given IM plus neurontin 200mg po After therapy administered patient feeling much better Discussed home therapy and follow up with Dr Cho.(states previous on gabapentin for pain over Lt Ear in past)
[2017-12-24] MEDS ORDERED: DILAUDID 0.5 MG/0.5 ML SYRINGE IM STA (09:04)
[2017-12-24] MEDS ORDERED: NEURONTIN PO SCH (09:30)
[2017-12-24] MEDS ORDERED: PHENERGAN 25 MG/ML VIAL IM STA (11:05)
== END 2017-12-24 12:48 | disposition home or self-care (01) ==
LOC: ED 08:21
DX: B02.9 Zoster without complications (principal); R10.9 Unspecified abdominal pain; M54.9 Dorsalgia, unspecified
CPT/HCPCS: 36415; 80053; 81001; 85025; 85651; 96372; 99283